=== PATIENT | male | born 1995 | race Caucasian/White ===

== ENCOUNTER 2017-07-12 17:25 | Emergency (ER) | payer SELFPAY ==
[2017-07-12 17:36] VITALS: TEMP 98.9
[2017-07-12] MEDS ORDERED: Sodium Chloride 0.9% 500 ML IV ONE (17:52)
--- NOTE | 2017-07-12 18:25 | C.PDOC ---
History Of Present Illness 22 year old male, with PMH of migraines, presents to the ED complaining of migraine type headache. Patient states he has had a headache for the past 5 days , but the pain got worse today prompting him to come to the ER. Patient notes associated symptoms of photophobia and dizziness but denies any vision changes, vomiting, nausea, or trauma. Patient also reports he feels allergies symptoms. Time Seen by Provider: 07/12/17 17:48 Chief Complaint (Nursing): Headache History Per: Patient History/Exam Limitations: no limitations Onset/Duration Of Symptoms: Days Current Symptoms Are (Timing): Still Present Associated Symptoms: Photophobia. denies: Nausea, Vomiting Past Medical History Reviewed: Historical Data, Nursing Documentation, Vital Signs Vital Signs: Last Vital Signs Temp 98.9 F 07/12/17 17:33 Pulse 81 07/12/17 18:49 Resp 16 07/12/17 18:49 BP 132/74 07/12/17 18:49 Pulse Ox 98 07/12/17 18:49 - Medical History PMH: Migraine Surgical History: No Surg Hx Family History: States: No Known Family Hx - Social History Hx Tobacco Use: No Hx Alcohol Use: No Hx Substance Use: No - Immunization History Hx Tetanus Toxoid Vaccination: No Hx Influenza Vaccination: No Hx Pneumococcal Vaccination: No Review Of Systems Except As Marked, All Systems Reviewed And Found Negative. Eyes: Negative for: Vision Change, Redness Respiratory: Negative for: Cough, Shortness of Breath Gastrointestinal: Negative for: Nausea, Vomiting Neurological: Positive for: Headache, Dizziness Physical Exam - Physical Exam Appears: Non-toxic, No Acute Distress Skin: Normal Color, Warm, Dry Head: Atraumatic, Normacephalic Eye(s): bilateral: Normal Inspection, PERRL, EOMI, Photophobia Ear(s): Bilateral: Normal Nose: Normal Oral Mucosa: Moist Tongue: Normal Appearing Lips: Normal Appearing Throat: Normal, No Erythema, No Exudate Neck: Normal ROM, Supple Chest: Symmetrical Cardiovascular: Rhythm Regular, No Murmur, No JVD Respiratory: Normal Breath Sounds, No Rales, No Rhonchi, No Wheezing Extremity: Bilateral: Atraumatic, Normal ROM Pulses: Left Radial: Normal Neurological/Psych: Oriented x3, Normal Speech, Normal Cranial Nerves (2-12 grossly intact), No Cerebellar Signs, Normal Motor, Normal Sensation Gait: Steady Other Neurological Findings: No Facial Palsy ED Course And Treatment O2 Sat by Pulse Oximetry: 100 (RA) Pulse Ox Interpretation: Normal Medical Decision Making Medical Decision Making: Impression: Migraine Plan: Reglan 10mg IV Toradol 30mg IVP Sodium Chloride 1 L Re-Eval: Patient was resting comfortably on stretcher in no acute distress in dark room. He has no fever, nuchal rigidity or neuro deficits. He reports headache has improved. Patient is alert and oriented. He is stable for discharge. He feels comfortable going home and will be discharged with Rx. Disposition Counseled Patient/Family Regarding: Diagnosis, Need For Followup, Rx Given - Disposition Disposition: HOME/ ROUTINE Disposition Time: 18:43 Condition: IMPROVED Additional Instructions: Vaya a brown mdico o la clnica en 2-5 soliman sin falta, para mas evaluacin. [place] los medicamentos valorie indicado. Volver a la rhett de emergencia en cualquier momento si los sntomas persisten o empeoran. Prescriptions: Acetaminophen/Butalbital/Caf [Fioricet] 1 tab PO TID PRN #20 tab PRN Reason: Headache Metoclopramide [Reglan] 1 tab PO TID PRN #25 tab PRN Reason: Nausea/Vomiting Instructions: Headache, Adult (DC) Print Language: [place] - POA Present On Arrival: None - Clinical Impression Clinical Impression: Migraine - PA / HEALTHCARE ECONOMICS CONSULTANT / Resident Statement MD/DO has reviewed & agrees with the documentation as recorded. - Scribe Statement The provider has reviewed the documentation as recorded by the Scribe (Vira Bone) All medical record entries made by the Scribe were at my direction and personally dictated by me. I have reviewed the chart and agree that the record accurately reflects my personal performance of the history, physical exam, medical decision making, and the department course for this patient. I have also personally directed, reviewed, and agree with the discharge instructions and disposition.
[2017-07-12 18:50] VITALS: BP 132/74; PULSE 81; RESP 16
[2017-07-12 19:02] VITALS: O2SAT 100
== END 2017-07-12 18:49 | disposition home or self-care (01) ==
LOC: C.ER 17:25
DX: G43.909 Migraine, unspecified, not intractable, without status migrainosus (principal)
CPT/HCPCS: 96374; 99284; J1885; J2765; J7040

== ENCOUNTER 2017-10-01 22:31 | Emergency (ER) | payer SELFPAY ==
[2017-10-01 22:42] VITALS: BP 113/75; PULSE 82; RESP 20; TEMP 98.5; O2SAT 98
[2017-10-01] MEDS ORDERED: Naproxen 550 mg Tab PO STA (23:16)
[2017-10-01] MEDS ORDERED: Naproxen 550 mg Tab PO ONE (23:20)
--- NOTE | 2017-10-01 23:53 | C.PDOC ---
History Of Present Illness 22 year old male presents to the ED c/o frontal headache and feeling like right ear is clogged. Patient reports he took 1 Motrin 200 mg [employer]. Patient denies fever, chills, visual changes, nausea, vomit, dizziness, weakness, numbness. Time Seen by Provider: 10/01/17 22:51 Chief Complaint (Nursing): Headache History Per: Patient History/Exam Limitations: no limitations Onset/Duration Of Symptoms: Hrs Current Symptoms Are (Timing): Still Present Quality: "Pain" Preceeding Symptoms: denies: Visual Disturbances, Known Migraine Symptoms Associated Symptoms: denies: Blurred Vision, Nausea, Vomiting Recent travel outside of the [place]: No Additional History Per: Patient Past Medical History Reviewed: Historical Data, Nursing Documentation, Vital Signs Vital Signs: Last Vital Signs Temp 98.5 F 10/01/17 22:39 Pulse 82 10/01/17 22:39 Resp 20 10/01/17 22:39 BP 113/75 10/01/17 22:39 Pulse Ox 98 10/02/17 01:34 - Medical History PMH: Migraine Surgical History: No Surg Hx Family History: States: Unknown Family Hx - Social History Hx Tobacco Use: No Hx Alcohol Use: No Hx Substance Use: No - Immunization History Hx Tetanus Toxoid Vaccination: No Hx Influenza Vaccination: No Hx Pneumococcal Vaccination: No Review Of Systems Constitutional: Negative for: Fever, Chills Eyes: Negative for: Vision Change ENT: Positive for: Ear Pain. Negative for: Nose Discharge, Nose Congestion Respiratory: Negative for: Cough, Shortness of Breath Gastrointestinal: Negative for: Nausea, Vomiting, Abdominal Pain Musculoskeletal: Negative for: Neck Pain Skin: Negative for: Rash Neurological: Positive for: Headache. Negative for: Weakness, Numbness, Dizziness Physical Exam - Physical Exam Appears: Non-toxic, No Acute Distress Skin: Normal Color, Warm, Dry Head: Atraumatic, Normacephalic Eye(s): bilateral: Normal Inspection, PERRL, EOMI Ear(s): Left: Normal, Right: Other (cerumen impaction ) Oral Mucosa: Moist Neck: Normal ROM, No Midline Cervical Tenderness, Supple Extremity: Normal ROM, No Tenderness, No Swelling Neurological/Psych: Oriented x3, Normal Speech, Normal Cognition, Normal Motor, Normal Sensation Gait: Steady ED Course And Treatment O2 Sat by Pulse Oximetry: 98 (ON RA) Pulse Ox Interpretation: Normal Progress Note: Plan: - Naproxen 550 mg PO. On reassessment, patient is resting comfortably, and is in no acute distress. Patient was instructed to follow up with physician/clinic in 1-2 days for further evaluation Disposition Counseled Patient/Family Regarding: Diagnosis, Need For Followup, Rx Given - Disposition Referrals: [facility] [Outside] Disposition: HOME/ ROUTINE Disposition Time: 23:50 Condition: STABLE Additional Instructions: PleaSE FOLLOW UP IN CLINIC RETURN TO ER IF WORSE Prescriptions: Carbamide Peroxide [Debrox 15 Ml] 5 drop OT DAILY #1 bottle Naproxen [Naprosyn] 1 tab PO BID PRN #20 tab PRN Reason: Pain Instructions: Ear Wax Impaction (DC), Headache, Adult (DC) Forms: Q Chip (Cymro) Print Language: YORUBA - Clinical Impression Clinical Impression: Headache, Impacted cerumen of right ear - PA / HIDE EXAMINER / Resident Statement MD/DO has reviewed & agrees with the documentation as recorded. - Scribe Statement The provider has reviewed the documentation as recorded by the Scribe Alirio Mccauley All medical record entries made by the Scribludivina were at my direction and personally dictated by me. I have reviewed the chart and agree that the record accurately reflects my personal performance of the history, physical exam, medical decision making, and the department course for this patient. I have also personally directed, reviewed, and agree with the discharge instructions and disposition.
== END 2017-10-02 00:02 | disposition home or self-care (01) ==
LOC: C.ER 22:31
DX: H61.21 Impacted cerumen, right ear (principal); R51 Headache